=== PATIENT | female | born 2005 | race Caucasian/White ===

== ENCOUNTER 2023-12-12 10:37 | Emergency (ER) | payer OTHER ==
[~2023-12-12] VITALS: Ht 149.9 cm; Wt 42.6 kg
[2023-12-12 10:46] VITALS: BP 93/64; PULSE 60; RESP 20; TEMP 97.6; O2SAT 100
[2023-12-12] MEDS ORDERED: ONDA-188 SL (11:31)
[2023-12-12] MEDS: ONDANSETRON 4 MG ODT PO ONE (11:51)
[2023-12-12] MEDS: IBUPROFEN 400 MG TAB PO ONE (11:52)
[2023-12-12 13:08] VITALS: BP 93/64; PULSE 60; RESP 20; TEMP 97.6; O2SAT 100
== END 2023-12-12 12:24 | disposition home or self-care (01) ==
LOC: MED 10:37
DX: S16.1XXA Strain of muscle, fascia and tendon at neck level, initial encounter (principal); F07.81 Postconcussional syndrome; Z79.1 Long term (current) use of non-steroidal anti-inflammatories (NSAID); V43.62XA Car passenger injured in collision with other type car in traffic accident, initial encounter; Y93.89 Activity, other specified; Y92.89 Other specified places as the place of occurrence of the external cause; Y99.8 Other external cause status
CPT/HCPCS: 81025; 99283; Q0162